=== PATIENT | male | born 1955 | race Caucasian/White ===

== ENCOUNTER 2024-05-17 01:57 | Inpatient (IN) | payer MEDICARE, BC, MEDICAID ==
[~2024-05-17] VITALS: Ht 175.3 cm; Wt 73.5 kg
[2024-05-17 03:06] LABS: BASOPHILS % (AUTO) 0.2 % (0.0-2.0); EOSINOPHILS % (AUTO) 0.1 % (1.0-6.0); HEMATOCRIT 44.5 % (41-53); HEMOGLOBIN 15.1 g/dL (13.5-17.5); LYMPHOCYTES # (AUTO) 1.8 K/uL (1.0-4.8); LYMPHOCYTES % (AUTO) 18.1 % (22.0-44.0); MEAN CORPUSCULAR HEMOGLOBIN 32.4 pg (26.0-34.0); MEAN CORPUSCULAR HGB CONC 33.8 G/dL (31.0-37.0); MEAN CORPUSCULAR VOLUME 96 fL (80-100); MONOCYTES # (AUTO) 1.2 K/uL (0.1-1.0); MONOCYTES % (AUTO) 12.3 % (2.0-9.0); NEUTROPHILS # (AUTO) 6.9 K/uL (1.8-7.7); NEUTROPHILS % (AUTO) 69.3 % (40.0-70.0); PLATELET COUNT (AUTO) 288 K/uL (150-450); RED BLOOD CELL COUNT(AUTO) 4.65 MIL/uL (4.50-5.90)
[2024-05-17 03:09] LABS: ANION GAP 12 mmol/L (8-16); CALCIUM, TOTAL 9.7 mg/dL (8.8-10.5); CARBON DIOXIDE 24 mmol/L (22-29); CHLORIDE 101 mmol/L (98-107); CREATININE 2.19 mg/dL (0.60-1.30); GLOMERULAR FILTR. RATE CALC 30 mL/min (>60); GLUCOSE,RANDOM 136 mg/dL (70-110); POTASSIUM 4.4 mmol/L (3.5-5.1); SODIUM SERUM 137 mmol/L (136-145); UREA NITROGEN, BLOOD 40 mg/dL (7-18)
[2024-05-17 03:17] LABS: TROPONIN I-HIGH SENSITIVITY 76 ng/L (<76)
[2024-05-17] MEDS ORDERED: LISI-894 PO (03:27)
[2024-05-17] MEDS ORDERED: SENN-376 PO (03:27)
[2024-05-17] MEDS ORDERED: ALPR-705 PO (03:27)
[2024-05-17] MEDS: LevETIRAcetam 1,000 MG in DEXTROSE 5%-WATER 100 ML IV ONE (03:30)
[2024-05-17] MEDS: SODIUM CHLORIDE 0.9% 1,000 ML IV ONE ×2 (03:30→17:45)
[2024-05-17 03:33] LABS: ALANINE AMINOTRANSFERASE 27 U/L (12-78); ALBUMIN 4.2 g/dL (3.4-5.0); ALKALINE PHOSPHATASE 147 U/L (46-116); ASPARTATE AMINOTRANSFERASE 15 U/L (15-37); BILIRUBIN,TOTAL 0.8 mg/dL (0.1-1.0); CREATINE KINASE, TOTAL ONLY 108 U/L (39-308); TOTAL PROTEIN, SERUM 8.3 g/dL (6.4-8.2)
[2024-05-17 03:46] LABS: ALCOHOL, BLOOD (SERUM) < 3 mg/dL (0-10); B-TYPE NATRIURETIC PEPTIDE 240 pg/mL (0-100)
[2024-05-17 03:58] LABS: INR 1.1 (0.9-1.1); PROTHROMBIN TIME 11.4 SEC (9.4-11.6)
[2024-05-17 04:05] LABS: PHOSPHORUS 3.1 mg/dL (2.5-4.9)
[2024-05-17] MEDS: DILTIAZEM HCL 5 MG/ML 5 ML VIAL IVP ONE (04:13)
[2024-05-17] MEDS: DILTIAZEM HCL 60 MG SR CAPSULE PO ONE (05:12)
[2024-05-17 05:42] LABS: TROPONIN I-HIGH SENSITIVITY 74 ng/L (<76)
[2024-05-17] MEDS: ASPIRIN 81 MG CHEWABLE TABLET PO ONE (06:37)
[2024-05-17 06:51] LABS: GLUCOMETER DEV NAME(LOC) ER.7; GLUCOSE,POINT OF CARE 117 MG/DL (70-110)
[2024-05-17] MEDS: HEPARIN SODIUM,PORCINE 5,000 UNITS/ML VIAL SQ SCH (08:58)
[2024-05-17 09:37] VITALS: BP 118/86; PULSE 86; RESP 16; TEMP 97.8; O2SAT 99
[2024-05-17] MEDS: DOCUSATE SODIUM 100 MG CAPSULE PO SCH (10:00)
[2024-05-17 11:33] VITALS: BP 106/59; PULSE 57; RESP 16; TEMP 96.6; O2SAT 98
[2024-05-17 13:50] LABS: APPEARANCE,URINE CLEAR (CLEAR); BILIRUBIN,URINE NEGATIVE (NEGATIVE); COLOR,URINE YELLOW (YELLOW); GLUCOSE, URINE (UA) NEGATIVE (NEGATIVE); KETONES,URINE TRACE mg/dL (NEGATIVE); LEUKOCYTE ESTERASE ,URINE NEGATIVE (NEGATIVE); NITRATE,URINE NEGATIVE (NEGATIVE); OCCULT BLOOD,URINE NEGATIVE (NEGATIVE); PROTEIN,URINE 30-70 mg/dL (NEGATIVE); SPECIFIC GRAVITIY, URINE 1.032 (1.003-1.030); UROBILINOGEN,URINE <=1.0 mg/dL (<=1.0)
[2024-05-17] MEDS: LevETIRAcetam 250 MG in DEXTROSE 5%-WATER 100 ML IV SCH (13:55)
[2024-05-17] MEDS: SODIUM CHLORIDE 0.9% 250 ML IV ONE (14:00)
[2024-05-17 14:02] LABS: CREATININE,URINE RANDOM 245.3 mg/dL (30.0-125.0)
[2024-05-17 14:05] LABS: ALCOHOL, URINE DRUG SCREEN NEGATIVE (NEGATIVE); AMPHET/METH SCREEN,URINE NEGATIVE (NEGATIVE); BARBITURATE SCREEN, URINE NEGATIVE (NEGATIVE); BENZODIAZEPINES SCREEN,URINE NEGATIVE (NEGATIVE); CANNABINOID SCREEN,URINE NEGATIVE (NEGATIVE); COCAINE SCREEN,URINE NEGATIVE (NEGATIVE); METHADONE SCREEN, URINE NEGATIVE (NEGATIVE); OPIATE SCREEN,URINE NEGATIVE (NEGATIVE); PHENCYCLIDINE SCREEN,URINE NEGATIVE (NEGATIVE)
[2024-05-17 16:18] VITALS: BP 114/66; PULSE 71; RESP 18; TEMP 98.2; O2SAT 97
[2024-05-17 20:00] VITALS: BP 106/65; PULSE 76; RESP 16; TEMP 98; O2SAT 93
[2024-05-17] MEDS: METOPROLOL TARTRATE 25 MG TABLET PO SCH (21:28)
[2024-05-17] MEDS: ASPIRIN 81 MG CHEWABLE TABLET PO SCH (21:29)
[2024-05-18 00:02] VITALS: BP 107/65; PULSE 83; RESP 18; TEMP 98.2; O2SAT 94
[2024-05-18 05:19] VITALS: BP 119/87; PULSE 65; RESP 16; TEMP 97.9; O2SAT 96
[2024-05-18 06:38] LABS: BASOPHILS % (AUTO) 0.4 % (0.0-2.0); EOSINOPHILS % (AUTO) 1.9 % (1.0-6.0); HEMATOCRIT 33.3 % (41-53); HEMOGLOBIN 11.5 g/dL (13.5-17.5); LYMPHOCYTES # (AUTO) 2.3 K/uL (1.0-4.8); LYMPHOCYTES % (AUTO) 41.4 % (22.0-44.0); MEAN CORPUSCULAR HEMOGLOBIN 32.9 pg (26.0-34.0); MEAN CORPUSCULAR HGB CONC 34.7 G/dL (31.0-37.0); MEAN CORPUSCULAR VOLUME 95 fL (80-100); MONOCYTES # (AUTO) 0.6 K/uL (0.1-1.0); MONOCYTES % (AUTO) 10.9 % (2.0-9.0); NEUTROPHILS # (AUTO) 2.5 K/uL (1.8-7.7); NEUTROPHILS % (AUTO) 45.4 % (40.0-70.0); PLATELET COUNT (AUTO) 208 K/uL (150-450); RED CELL DISTRIBUTION WIDTH 13.8 % (11.5-14.5); WHITE BLOOD COUNT (AUTO) 5.6 K/uL (4.5-11.0)
[2024-05-18 07:05] LABS: CALCIUM, TOTAL 8.6 mg/dL (8.8-10.5); CREATININE 1.41 mg/dL (0.60-1.30); POTASSIUM 3.8 mmol/L (3.5-5.1)
[2024-05-18 07:31] VITALS: BP 127/89; PULSE 66; RESP 18; TEMP 98; O2SAT 95
[2024-05-18 07:55] LABS: MAGNESIUM 1.9 mg/dL (1.80-2.40); THYROID STIMULATING HORMONE 2.2 uIU/mL (0.36-3.74)
[2024-05-18 08:26] LABS: TROPONIN I-HIGH SENSITIVITY 27 ng/L (<76)
[2024-05-18 11:45] VITALS: BP 108/90; PULSE 82; RESP 18; TEMP 98; O2SAT 96
[2024-05-18 16:04] VITALS: BP 101/84; PULSE 74; RESP 18; TEMP 98; O2SAT 95
[2024-05-18 20:00] VITALS: BP 138/96; PULSE 77; RESP 17; TEMP 98.2; O2SAT 99
[2024-05-18] MEDS: METOPROLOL TARTRATE 25 MG TABLET PO SCH (20:47)
[2024-05-18] MEDS ORDERED: SODIUM CHLORIDE 0.9% 500 ML IV ONE (23:51)
[2024-05-19] VITALS: BP 109/67; PULSE 61; RESP 18; TEMP 98.3; O2SAT 96
[2024-05-19 05:19] VITALS: BP 136/73; PULSE 89; RESP 19; TEMP 98.4; O2SAT 97
[2024-05-19 07:44] VITALS: BP 129/83; PULSE 83; RESP 18; TEMP 98.2; O2SAT 98
[2024-05-19 08:12] LABS: BASOPHILS % (AUTO) 1.3 % (0.0-2.0); EOSINOPHILS % (AUTO) 2.3 % (1.0-6.0); HEMATOCRIT 37.7 % (41-53); HEMOGLOBIN 12.9 g/dL (13.5-17.5); LYMPHOCYTES # (AUTO) 2.3 K/uL (1.0-4.8); MEAN CORPUSCULAR HEMOGLOBIN 32.4 pg (26.0-34.0); MEAN CORPUSCULAR HGB CONC 34.1 G/dL (31.0-37.0); MEAN CORPUSCULAR VOLUME 95 fL (80-100); MONOCYTES # (AUTO) 0.8 K/uL (0.1-1.0); MONOCYTES % (AUTO) 13.2 % (2.0-9.0); NEUTROPHILS # (AUTO) 2.6 K/uL (1.8-7.7); NEUTROPHILS % (AUTO) 44.2 % (40.0-70.0); PLATELET COUNT (AUTO) 224 K/uL (150-450); RED BLOOD CELL COUNT(AUTO) 3.97 MIL/uL (4.50-5.90); RED CELL DISTRIBUTION WIDTH 13.5 % (11.5-14.5); WHITE BLOOD COUNT (AUTO) 5.8 K/uL (4.5-11.0)
[2024-05-19 08:40] LABS: CALCIUM, TOTAL 9.4 mg/dL (8.8-10.5); CREATININE 1.45 mg/dL (0.60-1.30); POTASSIUM 3.7 mmol/L (3.5-5.1)
[2024-05-19] MEDS: ATORVASTATIN CALCIUM 20 MG TABLET PO ONE (08:51)
[2024-05-19] MEDS: LevETIRAcetam 500 MG TABLET PO SCH (08:51)
[2024-05-19 09:30] LABS: CHOL/HDL RATIO 3.4 (4.2-7.3)
[2024-05-19] MEDS: RINGERS SOLUTION,LACTATED 1,000 ML IV ONE (09:30)
[2024-05-19] MEDS: AMIODARONE HCL 150 MG in DEXTROSE 5%-WATER 97 ML IV ONE (10:53)
[2024-05-19 11:40] VITALS: BP 127/78; PULSE 74; RESP 18; TEMP 98; O2SAT 95
[2024-05-19 15:36] VITALS: BP 122/67; PULSE 88; RESP 18; TEMP 97.7; O2SAT 96
[2024-05-19 21:00] VITALS: BP 130/79; PULSE 72; RESP 18; TEMP 98.5; O2SAT 97
[2024-05-19] MEDS: APIXABAN 5 MG TABLET PO SCH (21:11)
[2024-05-19] MEDS: METOPROLOL TARTRATE 25 MG TABLET PO SCH (21:18)
[2024-05-20 04:51] VITALS: BP 117/63; PULSE 61; RESP 18; TEMP 97.7; O2SAT 97
[2024-05-20 06:30] LABS: BASOPHILS % (AUTO) 0.6 % (0.0-2.0); EOSINOPHILS % (AUTO) 2.5 % (1.0-6.0); HEMOGLOBIN 11.9 g/dL (13.5-17.5); LYMPHOCYTES # (AUTO) 2.3 K/uL (1.0-4.8); LYMPHOCYTES % (AUTO) 45.8 % (22.0-44.0); MEAN CORPUSCULAR HEMOGLOBIN 32.3 pg (26.0-34.0); MEAN CORPUSCULAR HGB CONC 34.1 G/dL (31.0-37.0); MEAN CORPUSCULAR VOLUME 95 fL (80-100); MONOCYTES # (AUTO) 0.7 K/uL (0.1-1.0); MONOCYTES % (AUTO) 13.7 % (2.0-9.0); NEUTROPHILS # (AUTO) 1.9 K/uL (1.8-7.7); NEUTROPHILS % (AUTO) 37.4 % (40.0-70.0); PLATELET COUNT (AUTO) 232 K/uL (150-450); RED CELL DISTRIBUTION WIDTH 13.4 % (11.5-14.5)
[2024-05-20 07:19] LABS: CALCIUM, TOTAL 8.7 mg/dL (8.8-10.5); CREATININE 1.41 mg/dL (0.60-1.30); POTASSIUM 3.8 mmol/L (3.5-5.1)
[2024-05-20 08:35] VITALS: BP 136/98; PULSE 64; RESP 16; TEMP 97.5
[2024-05-20] MEDS: SODIUM CHLORIDE 0.9% 1,000 ML IV SCH (11:40)
[2024-05-20 11:59] VITALS: BP 132/74; PULSE 63; RESP 16; TEMP 98.3; O2SAT 96
[2024-05-20 17:05] VITALS: BP 126/83; PULSE 60; RESP 18; TEMP 98; O2SAT 94
[2024-05-20] MEDS ORDERED: METO-391 PO (17:34)
[2024-05-20] MEDS ORDERED: CLOP75TA32 PO (17:34)
[2024-05-20] MEDS ORDERED: ATOR40TA71 PO (17:34)
[2024-05-20 20:00] VITALS: BP 156/88; PULSE 72; RESP 19; TEMP 98.6; O2SAT 98
[2024-05-21 01:18] VITALS: BP 117/68; PULSE 58; RESP 17; TEMP 98.1; O2SAT 98
[2024-05-21 05:58] VITALS: BP 151/94; PULSE 66; RESP 20; TEMP 98.1; O2SAT 96
[2024-05-21 09:02] VITALS: BP 147/77; PULSE 76; RESP 16; TEMP 98.2; O2SAT 98
[2024-05-21 16:12] VITALS: BP 168/87; PULSE 76; RESP 14; TEMP 97.7; O2SAT 97
[2024-05-21] MEDS: AmLODIPine BESYLATE 5 MG TABLET PO ONE (17:08)
[2024-05-22] MEDS ORDERED: AmLODIPine BESYLATE 5 MG TABLET PO SCH (09:00)
== END 2024-05-21 20:00 | DRG 70 ==
LOC: EMS 01:57 → UNDOADMIN 06:52 → EDH 06:52 → 5S 09:34 → 4E 05-20 23:36
PROVIDERS: ADMIT Internal Medicine; ATTEND Internal Medicine
PROC: 4A00X4Z Measurement of Central Nervous Electrical Activity, External Approach (ICD-10-PCS; principal; 2024-05-17)
DX: G93.41 Metabolic encephalopathy (principal); I21.A1 Myocardial infarction type 2; I50.33 Acute on chronic diastolic (congestive) heart failure; N17.0 Acute kidney failure with tubular necrosis; F03.94 Unspecified dementia, unspecified severity, with anxiety; I48.92 Unspecified atrial flutter; I13.0 Hypertensive heart and chronic kidney disease with heart failure and stage 1 through stage 4 chronic kidney disease, or unspecified chronic kidney disease; R79.89 Other specified abnormal findings of blood chemistry; N18.9 Chronic kidney disease, unspecified; I48.0 Paroxysmal atrial fibrillation; R32 Unspecified urinary incontinence; G40.209 Localization-related (focal) (partial) symptomatic epilepsy and epileptic syndromes with complex partial seizures, not intractable, without status epilepticus; I44.0 Atrioventricular block, first degree; I45.10 Unspecified right bundle-branch block; Z79.01 Long term (current) use of anticoagulants
CPT/HCPCS: 70450; 70544; 70551; 71045; 76770; 80048; 80053; 80061; 80307; 81003; 82140; 82550; 82570; 82962; 83735; 83880; 84100; 84300; 84443; 84484; 85025; 85610; 85730; 93005; 93306; 95816; 97163; 99285; G0378; G0480; J0282; J0712; J1644; J3490; J7030; J7040; J7050; J7060; J7120; 36415-L1; 36415-TC